=== PATIENT | male | born 1980 | race Two or more races ===

== ENCOUNTER 2023-12-14 13:42 | Emergency (ER) | payer SELFPAY ==
[~2023-12-14] VITALS: Ht 182.9 cm; Wt 111.6 kg
[2023-12-14] MEDS ORDERED: IBUP-1456 PO (19:28)
[2023-12-14] MEDS ORDERED: CYCL-837 PO (19:28)
[2023-12-14] MEDS: KETOROLAC TROMETH 60MG/2ML VIAL IM ONE (19:50)
[2023-12-14 20:00] VITALS: BP 123/81; PULSE 76; RESP 18; TEMP 99; O2SAT 95
== END 2023-12-14 20:26 | disposition home or self-care (01) ==
LOC: ER 13:46
DX: S23.41XA Sprain of ribs, initial encounter (principal); I10 Essential (primary) hypertension; F15.90 Other stimulant use, unspecified, uncomplicated; Z98.890 Other specified postprocedural states; Z79.899 Other long term (current) drug therapy; X58.XXXA Exposure to other specified factors, initial encounter; Y93.89 Activity, other specified; Y92.89 Other specified places as the place of occurrence of the external cause; Y99.8 Other external cause status
CPT/HCPCS: 72100; 96372; 99283; J1885